=== PATIENT | male | born 1985 | race Caucasian/White ===

== ENCOUNTER 2017-01-04 05:59 | Day surgery (SDC) | payer OTHER ==
[~2017-01-04] VITALS: Ht 172.7 cm; Wt 102.1 kg
[2017-01-04 06:35] LABS: BASOPHILS # (AUTO) 0.1 K/uL (0.00-0.22); BASOPHILS % (AUTO) 1.6 % (0.0-2.0); EOSINOPHILS # (AUTO) 0.2 K/uL (0-0.4); EOSINOPHILS % (AUTO) 2.9 % (0.0-4.0); HEMATOCRIT 42.8 % (36-52); HEMOGLOBIN 14.2 g/dL (12.0-18.0); LYMPHOCYTES # (AUTO) 1.5 K/uL (2.0-11.5); LYMPHOCYTES % (AUTO) 23.1 % (20.5-51.1); MEAN CORPUSCULAR HEMOGLOBIN 29 pg (27-31); MEAN CORPUSCULAR HGB CONC 33 g/dL (33-37); MEAN CORPUSCULAR VOLUME 87 fL (80-94); MONOCYTES # (AUTO) 0.4 K/uL (0.8-1.0); MONOCYTES % (AUTO) 6.3 % (1.7-9.3); NEUTROPHILS # (AUTO) 4.2 K/uL (1.8-7.7); NEUTROPHILS % (AUTO) 66.1 % (42.2-75.2); PLATELET COUNT (AUTO) 209 K/uL (140-450); RED BLOOD CELL COUNT(AUTO) 4.94 MIL/uL (4.20-6.10); RED CELL DISTRIBUTION WIDTH 11.8 % (11.6-13.7); WHITE BLOOD COUNT (AUTO) 6.4 K/uL (4.8-10.8)
[2017-01-04 06:49] LABS: ANION GAP 14.3 (8-16); CARBON DIOXIDE 24.5 mmol/L (21-32); CREATININE 0.9 mg/dL (0.7-1.3); POTASSIUM 3.8 mmol/L (3.5-5.1)
[2017-01-04 06:55] LABS: ALBUMIN 3.8 g/dL (3.4-5.0); TOTAL BILIRUBIN 0.7 mg/dL (0.0-1.0)
[2017-01-04] MEDS ORDERED: BUPIVACAINE-MPF/EPI 0.25% 10 ML VIAL INJ ONE (07:15)
[2017-01-04] MEDS ORDERED: ceFAZolin 1,000 MG VIAL ONE (07:15)
[2017-01-04] MEDS ORDERED: BUPIVACAINE-MPF 0.25% 30 ML VIAL INJ ONE (07:19)
[2017-01-04] MEDS ORDERED: PROPOFOL 200 MG/20 ML VIAL IV ONE (07:34)
[2017-01-04] MEDS ORDERED: DEXAMETHASONE 4 MG/ML VIAL ONE (07:34)
[2017-01-04] MEDS ORDERED: KETOROLAC 30 MG/ML VIAL ONE (07:34)
[2017-01-04] MEDS ORDERED: ONDANSETRON 4 MG/2 ML VIAL ONE (07:34)
[2017-01-04] MEDS ORDERED: DESFLURANE 240 ML BTL INH ONE (07:34)
[2017-01-04] MEDS ORDERED: fentaNYL 0.05 MG/ML VIAL ONE (07:42)
[2017-01-04] MEDS ORDERED: HYDROmorphone PFS 2 MG/ML SYR ONE ×2 (07:42→09:49)
[2017-01-04] MEDS ORDERED: ONDANSETRON 4 MG/2 ML VIAL IVP PRN (09:05)
[2017-01-04] MEDS ORDERED: ONDANSETRON 4 MG/2 ML VIAL IV PRN (09:25)
[2017-01-04] MEDS ORDERED: MORPHINE SULFATE 4 MG/ML SYR IV PRN (09:25)
[2017-01-04] MEDS ORDERED: HYDROmorphone 1 MG/ML AMP IVP PRN (09:25)
[2017-01-04] MEDS ORDERED: HYDROcodone/APAP 5/325 MG 1 TAB TAB PO PRN (09:25)
[2017-01-04] MEDS: HYDROmorphone 1 MG/ML AMP IVP PRN ×4 (09:35→10:05)
== END 2017-01-04 11:50 | disposition home or self-care (01) ==
LOC: MOR 05:59 → MMU 06:00 → MOR 11:50
PROVIDERS: ATTEND Surgery
DX: K40.90 Unilateral inguinal hernia, without obstruction or gangrene, not specified as recurrent (principal)
CPT/HCPCS: 36415; 49505; 71010; 80053; 85025; J0690; J1100; J1170; J1885; J2405; J2704; J3010; J3490; J7060; J7120